=== PATIENT | male | born 1970 | race Caucasian/White ===

== ENCOUNTER 2019-11-16 13:53 | Emergency (ER) | payer MEDICAID ==
[~2019-11-16] VITALS: Ht 193 cm; Wt 108.9 kg
--- NOTE | 2019-11-16 13:53 | NUR ---
Patient BIBA BLS, transferred to bed 7. Dr. Vazquez and RN are evaluating the patient at bedside.
[2019-11-16 13:54] VITALS: BP 129/71
[2019-11-16] MEDS ORDERED: ONDANSETRON 4 MG/2 ML VIAL IVP ONE (14:00)
[2019-11-16] MEDS ORDERED: KETOROLAC 30 MG/ML VIAL IVP ONE (14:00)
[2019-11-16] MEDS ORDERED: MORPHINE SULFATE 4 MG/ML SYR IVP ONE ×2 (14:00→15:30)
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
--- NOTE | 2019-11-16 14:19 | NUR ---
pt taken to xray via aline
--- NOTE | 2019-11-16 15:00 | NUR ---
PT C/O UNRELIEVED PAIN, DR. TAYLOR MADE AWARE
[2019-11-16] MEDS ORDERED: fentaNYL 0.05 MG/ML VIAL IVP ONE (16:10)
[2019-11-16 16:36] LABS: PROTHROMBIN TIME 9.3 secs (10.8-13.4)
--- NOTE | 2019-11-16 16:37 | NUR ---
PT UNABLE TO URINATE AT THIS TIME.
--- NOTE | 2019-11-16 16:37 | NUR ---
CMS REMAINS INTACT, +2 PULSES TO R FOOT
[2019-11-16 16:49] LABS: ALBUMIN 3.2 g/dL (3.4-5.0); ANION GAP 13.6 (8-16); CARBON DIOXIDE 27.2 mmol/L (21-32); POTASSIUM 3.8 mmol/L (3.5-5.1); TOTAL BILIRUBIN 0.5 mg/dL (0.0-1.0)
--- NOTE | 2019-11-16 16:53 | NUR ---
applied knee immobilizer to right knee/leg without any issues
--- NOTE | 2019-11-16 16:56 | NUR ---
PT REPORTS PAIN RELIEF NOW AT 11/09.
--- NOTE | 2019-11-16 16:58 | NUR ---
PT REMAINS UNABLE TO URINATE
[2019-11-16 17:26] LABS: BASOPHILS # (AUTO) 0.1 K/uL (0.00-0.22); BASOPHILS % (AUTO) 0.7 % (0.0-2.0); EOSINOPHILS # (AUTO) 0.1 K/uL (0-0.4); EOSINOPHILS % (AUTO) 1.3 % (0.0-4.0); HEMATOCRIT 38.1 % (36-52); HEMOGLOBIN 12.3 g/dL (12.0-18.0); LYMPHOCYTES % (AUTO) 11.9 % (20.5-51.1); MEAN CORPUSCULAR HEMOGLOBIN 29 pg (27-31); MEAN CORPUSCULAR HGB CONC 32 g/dL (33-37); MEAN CORPUSCULAR VOLUME 89.4 fL (80-94); MONOCYTES # (AUTO) 0.4 K/uL (0.8-1.0); MONOCYTES % (AUTO) 5.3 % (1.7-9.3); NEUTROPHILS # (AUTO) 6.7 K/uL (1.8-7.7); NEUTROPHILS % (AUTO) 80.8 % (42.2-75.2); PLATELET COUNT (AUTO) 296 K/uL (140-450); RED BLOOD CELL COUNT(AUTO) 4.26 MIL/uL (4.20-6.10); RED CELL DISTRIBUTION WIDTH 14.6 % (11.6-13.7); WHITE BLOOD COUNT (AUTO) 8.3 K/uL (4.8-10.8)
--- NOTE | 2019-11-16 17:41 | NUR ---
PT ASLEEP IN BED, NO NEW NEEDS AT THIS TIME
--- NOTE | 2019-11-16 18:33 | NUR ---
CONSENT FOR TX TO [facility] SIGNED BY PT. PT RESTING IN BED COMFORTABLE, NO NEW NEEDS AT THIS TIME.
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
--- NOTE | 2019-11-16 18:48 | NUR ---
+2 PEDAL PULSE NOTED TO R FOOT. CAP REFIL <2 SECONDS. CMS INTACT
[2019-11-16 19:06] LABS: HEMATOCRIT 37.4 % (36-52); HEMOGLOBIN 12.1 g/dL (12.0-18.0)
--- NOTE | 2019-11-16 19:18 | NUR ---
PRIOR NURSE COLLEEN RN STATED THAT DR JORDAN DID NOT NEED URINE FROM PT SINCE HE WAS UNABLE TO URINATE AND CANNOT HAVE WATER DUE TO NEEDING SURGERY ON LEG
--- NOTE | 2019-11-16 19:18 | NUR ---
REPORT RECEIVED FROM COLLEEN LOCK, PT ALERT AND AWAKE, STATES PAIN IS MANAGED WELL. PT UNABLE TO URINATE, RACHEL MADE AWARE
--- NOTE | 2019-11-16 19:30 | NUR ---
PEDAL PULSE +2, CAP REFILL < 3 SECS ON RIGHT FOOT.
--- NOTE | 2019-11-16 20:00 | NUR ---
Patient to be transferred to [facility]. Is being transferred due to higher level of care. Receiving facility has accepting physician and available space. ER physician has signed transfer form. Patient or responsible libertarian has agreed to transfer and signed form. Patient belongings inventoried and will be sent with patient. Copy of nursing notes, lab reports, EKG, Physicians Orders and X-rays to be sent with patient. Report called to Rashi LOCK at receiving facility. [facility] ambulance service has been called for transfer. ETA is 30mins.
--- NOTE | 2019-11-16 20:35 | NUR ---
[facility] TRANSPORT AT BEDSIDE
[2019-11-16 20:37] VITALS: BP 127/72
--- NOTE | 2019-11-16 20:40 | NUR ---
PT LEFT FACILITY BY [facility]
== END 2019-11-16 20:00 | disposition short-term general hospital (02) ==
LOC: MED 13:53
DX: S72.401A Unspecified fracture of lower end of right femur, initial encounter for closed fracture (principal); Z98.890 Other specified postprocedural states; V87.8XXA Person injured in other specified noncollision transport accidents involving motor vehicle (traffic), initial encounter; Y93.89 Activity, other specified; Y92.89 Other specified places as the place of occurrence of the external cause; Y99.8 Other external cause status
CPT/HCPCS: 29505; 36415; 73552; 73562; 80053; 85018; 85025; 85610; 85730; 86886; 86900; 86901; 96374; 96375; 96376; 99285; J1885; J2270; J2405; J3010; Q0092; 93005